=== PATIENT | male | born 1985 | race Caucasian/White ===

== ENCOUNTER → 2016-08-22 | Outpatient (CLI) | payer BC ==
--- NOTE | 2016-08-23 03:03 | REP ---
Clinical: Dyspnea and bronchitis . Comparison: None . Technique: PA and lateral. Findings: The mediastinum and cardiac silhouette are normal. The lung mars are clear and without acute consolidation, effusion, or pneumothorax. The skeletal structures are intact and normal. Impression: 1. No acute cardiopulmonary process. Signed by Mihir Vickers MD 08/23/2016 02:54 A
== END ==
LOC: M WUC 11:03
PROVIDERS: ATTEND Physician Assistant
DX: J90 Pleural effusion, not elsewhere classified (principal)

== ENCOUNTER → 2019-03-17 | Outpatient (CLI) | payer BC ==
[2019-03-20 00:06] LABS: Lyme Disease IgG/IgM Antibodie <0.91 ISR (0.00-0.90); Lyme Disease IgM Ab Quantitati <0.80 index (0.00-0.79)
== END ==
LOC: M WUC 13:30
PROVIDERS: ATTEND Nurse Practitioner Family
DX: S20.461A Insect bite (nonvenomous) of right back wall of thorax, initial encounter (principal); W57.XXXA Bitten or stung by nonvenomous insect and other nonvenomous arthropods, initial encounter; Y92.9 Unspecified place or not applicable

== ENCOUNTER → 2019-03-27 | Outpatient (REF) | payer BC ==
[2019-03-31 14:15] LABS: Lyme Disease IgG Ab 18 kDa Ban Present (.); Lyme Disease IgG Ab 23 kDa Ban Present (.); Lyme Disease IgG Ab 28 kDa Ban Absent (.); Lyme Disease IgG Ab 30 kDa Ban Absent (.); Lyme Disease IgG Ab 39 kDa Ban Absent (.); Lyme Disease IgG Ab 41 kDa Ban Present (.); Lyme Disease IgG Ab 45 kDa Ban Absent (.); Lyme Disease IgG Ab 58 kDa Ban Absent (.); Lyme Disease IgG Ab 66 kDa Ban Absent (.); Lyme Disease IgG Ab 93 kDa Ban Absent (.); Lyme Disease IgG West Blot Int Negative (.); Lyme Disease IgG/IgM Antibodie 2.51 ISR (0.00-0.90); Lyme Disease IgM Ab 23 kDa Ban Present (.); Lyme Disease IgM Ab 39 kDa Ban Present (.); Lyme Disease IgM Ab 41 kDa Ban Present (.); Lyme Disease IgM Ab Quantitati 11.54 index (0.00-0.79); Lyme Disease IgM West Blot Int Positive (.)
== END ==
LOC: M LAB REF 16:41
PROVIDERS: ATTEND Internal Medicine
DX: L51.9 Erythema multiforme, unspecified (principal)

== ENCOUNTER → 2019-04-16 | Outpatient (CLI) | payer BC ==
--- NOTE | 2019-04-16 17:51 | REP ---
Lumbar spine five views: There are no comparisons. Vertebral body heights and alignment are normal. There is degenerative disc disease at L1-2 L2-3. The disc spaces are otherwise unremarkable. There is a Schmorl's node in the L4 superior endplate. There is questionably spondylolysis of L5 on the right. There is no spondylolisthesis. The sacroiliac articulations are unremarkable. Impression: L1-2 and L2-3 degenerative disc disease. Questionable unilateral spondylolysis of L5 on the right. No spondylolisthesis. Electronically Signed by Soy Jenkins MD 04/16/2019 05:43 P
== END ==
LOC: M WUC 17:22
PROVIDERS: ATTEND Chiropractor
DX: M51.36 Other intervertebral disc degeneration, lumbar region (principal); M99.04 Segmental and somatic dysfunction of sacral region

== ENCOUNTER → 2023-11-07 | Outpatient (REF) | payer BC | LOC: M LAB REF 16:21 | PROVIDERS: ATTEND Internal Medicine | DX: R10.9 Unspecified abdominal pain (principal) ==